=== PATIENT | male | born 1975 | race Caucasian/White ===

== ENCOUNTER 2017-09-13 21:58 | Inpatient (IN) | payer OTHER ==
[2017-09-13 22:51] VITALS: BMI 26.2
--- NOTE | 2017-09-13 23:33 | HP ---
CIWA Score - CIWA Score Nausea/Vomitin Muscle Tremors: 3 Anxiety: 4-Mod. Anxious/Guarded Agitation: 3 Paroxysmal Sweats: 3 Orientation: 2-Disoriented Date<2 days Tacttile Disturbances: 0-None Auditory Disturbances: 0-None Visual Disturbances: 0-None Headache: 3-Moderate CIWA-Ar Total Score: 21 Admission ROS S - HPI Chief Complaint: withdrawal symptoms Allergies/Adverse Reactions: Allergies Allergy/AdvReac Type Severity Reaction Status Date / Time No Known Allergies Allergy Verified 09/13/17 22:54 History of Present Illness: 41 yo male with hx of alcohol, nicotine, and cocaine dependence is here for detox. 16 year cigarette smoking history currently smokes 2 packs per day. PMHX : depression and anxiety. Currently suicidal / homicidal ideation, last suicide attempted 6 months ago with a psychiatric admission to [facility]. Longest period of sobriety 2 years. Last detox 3 years ago, in [place], unable to recall the name of the facility. Exam Limitations: No Limitations - Ebola screening Have you traveled outside of the country in the last 21 days: No (N) Have you had contact with anyone from an Ebola affected area: No Have you been sick,other than usual withdrawal symptoms: No Do you have a fever: No - Review of Systems Constitutional: Chills, Changes in sleep (3 days without sleeping) EENT: reports: No Symptoms Reported Respiratory: reports: Cough (first thing in the morning) Cardiac: reports: No Symptoms Reported, Syncope (from drinking, last time yesterday) GI: reports: Nausea : reports: No Symptoms Reported Musculoskeletal: reports: Joint Pain, Muscle Pain Integumentary: reports: No Symptoms Reported Neuro: reports: Headache Endocrine: reports: No Symptoms Reported Hematology: reports: No Symptoms Reported Psychiatric: reports: Orientated x3, Anxious, Depressed Other Systems: Reviewed and Negative Patient History - Patient Medical History Hx Anemia: No Hx Asthma: No Hx Chronic Obstructive Pulmonary Disease (COPD): No Hx Cancer: Yes (hx of Hodkins Lymphoma, tx 8 years ago) Hx Cardiac Disorders: No Hx Congestive Heart Failure: No Hx Hypertension: No Hx Hypercholesterolemia: No Hx Pacemaker: No HX Cerebrovascular Accident: No Hx Seizures: No Hx Dementia: No Hx Diabetes: No Hx Gastrointestinal Disorders: Yes (GERD ) Hx Liver Disease: No Hx Genitourinary Disorders: No Hx Sexually Transmitted Disorders: No Hx Renal Disease (ESRD): No Hx Thyroid Disease: No Hx Human Immunodeficiency Virus (HIV): No (last tested 2013) Hx Hepatitis C: No Hx Depression: Yes Hx Suicide Attempt: Yes (last attempt 6 months ago and admitted to [facility] ) Hx Bipolar Disorder: No Hx Schizophrenia: No - Patient Surgical History Past Surgical History: Yes Hx Neurologic Surgery: No Hx Cataract Extraction: No Hx Cardiac Surgery: No Hx Lung Surgery: No Hx Breast Surgery: No Hx Breast Biopsy: No Hx Abdominal Surgery: No Hx Appendectomy: No Hx Cholecystectomy: No Hx Genitourinary Surgery: No Hx Section: No Hx Orthopedic Surgery: No Other Surgical History: EAR and neck SX-@ age13 Anesthesia Reaction: No - PPD History Previous Implant?: Yes Documented Results: Negative w/o proof PPD to be Administered?: Yes - Reproductive History Patient is a Female of Child Bearing Age (11 -55 yrs old): No - Smoking Cessation Smoking history: Current every day smoker Have you smoked in the past 12 months: Yes Aproximately how many cigarettes per day: 40 Hx Chewing Tobacco Use: No Initiated information on smoking cessation: Yes 'Breaking Loose' booklet given: 09/13/17 - Substance & Tx. History Hx Alcohol Use: Yes Hx Substance Use: Yes Substance Use Type: Alcohol, Cocaine, Marijuana Hx Substance Use Treatment: Yes - Substances Abused Alcohol Route: Oral Frequency: Daily Amount used: liquor- 3 pints Age of first use: 13 Date of Last Use: 09/13/17 Cocaine Route: Inhalation Frequency: Daily Amount used: 4gm Age of first use: 13 Date of Last Use: 09/13/17 Marijuana/Hashish Route: Smoking Frequency: Daily Amount used: 1 once Age of first use: 14 Date of Last Use: 09/13/17 Family Disease History - Family Disease History Family Disease History: CA: Mother (dec, lung cancer ), Other: Father (alive and well ) Admission Physical Exam [facility] - Vital Signs Vital Signs: Vital Signs - 24 hr 09/13/17 22:49 Temperature 97.1 F L Pulse Rate 104 H Respiratory 19 Rate Blood Pressure 158/99 - Physical General Appearance: Yes: Mild Distress, Irritable, Sweating, Anxious HEENTM: Yes: Hearing grossly Normal, Normal ENT Inspection, Normocephalic, Normal Voice, Pharynx Normal, Tm's normal, Other (dry mucous membranes) Respiratory: Yes: Chest Non-Tender, No Respiratory Distress, No Accessory Muscle Use, Wheezing (expiratory b/t lower lobes) Neck: Yes: No masses,lesions,Nodules, Trachea in good position Breast: Yes: Breast Exam Deferred Cardiology: Yes: Regular Rhythm, Regular Rate Abdominal: Yes: Normal Bowel Sounds, Non Tender, Flat, Soft Genitourinary: Yes: Within Normal Limits (reports no urinary symptoms) Back: Yes: Normal Inspection Musculoskeletal: Yes: full range of Motion, Gait Steady, Pelvis Stable Extremities: Yes: Normal Capillary Refill, Normal Inspection, Normal Range of Motion, Non-Tender Neurological: Yes: white kid buffer II-XII NML intact, Fully Oriented, Alert, Motor Strength 5/5, Normal Response, Depressed Affect Integumentary: Yes: Normal Color, Dry, Warm, Other (poor skin turgor) Lymphatic: Yes: Within Normal Limits - Diagnostic (1) Alcohol dependence with withdrawal Current Visit: Yes Status: Acute (2) Cocaine dependence Current Visit: Yes Status: Acute (3) Anxious mood Current Visit: Yes Status: Acute (4) GERD (gastroesophageal reflux disease) Current Visit: Yes Status: Acute (5) Depressed mood Current Visit: Yes Status: Acute (6) Difficulty sleeping Current Visit: Yes Status: Acute (7) Dehydration Current Visit: Yes Status: Acute (8) Nicotine dependence Current Visit: Yes Status: Chronic Qualifiers: Nicotine product type: cigarettes (9) Wheezing Current Visit: Yes Status: Acute (10) Cannabis dependence Current Visit: Yes Status: Chronic Cleared for Admission [facility] - Detox or Rehab [facility] Level of Care: Medically Managed Detox Regimen/Protocol: Librium [facility] Breath Alcohol Content Breath Alcohol Content: 0.178 Urine Drug Screen - Results Drug Screen Negative: No Urine Drug Screen Results: THC-Marijuana, JUDAH-Cocaine, TCA-Tricyclic Antidepress
[2017-09-13] MEDS ORDERED: chlordiazePOXIDE HCL 25 MG CAPSULE PO PRN (23:51)
[2017-09-13] MEDS ORDERED: MENTHOL/PHENOL 1 EACH UD MM PRN (23:51)
[2017-09-13] MEDS ORDERED: MAGNESIUM HYDROX 2400MG/30ML ORAL SUSPENSION 30 ML CUP PO PRN (23:51)
[2017-09-13] MEDS ORDERED: P-EPHED 60MG/TRIPROLIDI 2.5MG TABLET PO PRN (23:51)
[2017-09-13] MEDS ORDERED: MAGNESIUM CITRATE 300 ML BOTTLE PO PRN (23:51)
[2017-09-13] MEDS ORDERED: guaiFENesin/D-METHORPHAN HB 10 ML UNIT-DOSE CUPS PO PRN (23:51)
[2017-09-13] MEDS ORDERED: chlordiazePOXIDE HCL 25 MG CAPSULE PO ONE (23:51)
[2017-09-13] MEDS ORDERED: hydrOXYzine PAMOATE 50 MG CAPSULE (FP) PO PRN (23:51)
[2017-09-13] MEDS ORDERED: LOPERAMIDE HCL 2 MG CAPSULE PO PRN (23:51)
[2017-09-13] MEDS ORDERED: ACETAMINOPHEN 325 MG TABLET (FP) PO PRN (23:51)
[2017-09-13] MEDS ORDERED: IBUPROFEN 400 MG TABLET (FP) PO PRN (23:51)
[2017-09-13] MEDS ORDERED: MAG HYDROX/AL HYDROX/SIMETH 30 ML UNIT-DOSE CUP PO PRN (23:51)
[2017-09-13] MEDS ORDERED: NICOTINE POLACRILEX 4 MG GUM BC PRN (23:51)
[2017-09-13] MEDS ORDERED: ALBUTEROL SO4 2.5/IPRATROPIUM 0.5 INH SOL 3 ML VIAL.NEB. NEB PRN (23:53)
[2017-09-14] MEDS: chlordiazePOXIDE HCL 25 MG CAPSULE PO SCH ×5 (01:09→22:22)
--- NOTE | 2017-09-14 09:09 | CONSULT ---
[facility] Psychiatric Consult - Data Date of interview: 09/14/17 Admission source: [facility] Identifying data: This is 41 years old male with history of psychiatric hospitalization, currently looking for detos from: Cocaine, Opioids and Nicotine Substance Abuse History: - Smoking Cessation. Smoking history: Current every day smoker. Have you smoked in the past 12 months: Yes. Aproximately how many cigarettes per day: 40. Hx Chewing Tobacco Use: No. Initiated information on smoking cessation: Yes. 'Breaking Loose' booklet given: 09/13/17. - Substance & Tx. History. Hx Alcohol Use: Yes. Hx Substance Use: Yes. Substance Use Type : Alcohol, Cocaine, Marijuana. Hx Substance Use Treatment: Yes. - Substances Abused. Alcohol. Route: Oral. Frequency: Daily. Amount used: liquor- 3 pints. Age of first use: 13. Date of Last Use: 09/13/17. Cocaine. Route: Inhalation. Frequency: Daily. Amount used: 4gm. Age of first use: 13. Date of Last Use: 09/13/17. Marijuana/Hashish. Route: Smoking. Frequency: Daily. Amount used: 1 once. Age of first use: 14. Date of Last Use: 09/13/17 Medical History: Denies significant medical problem. As per computer -GERD Psychiatric History: Patient reports hisotyr of anxety, reports most recent psychiatric admission on 2015 at [facility]; for safety being under Cicaine influance. Reports no medications taking prior to admission Physical/Sexual Abuse/Trauma History: Denies Additional Comment: Observation. Detox Unit Care Protocol Mental Status Exam - Mental Status Exam Alert and Oriented to: Person Cognitive Function: Fair Patient Appearance: Unkempt Mood: Anxious Affect: Mood Congruent Patient Behavior: Cooperative Speech Pattern: Appropriate Voice Loudness: Normal Thought Process: Goal Oriented Thought Disorder: Being Controlled Hallucinations: Denies Suicidal Ideation: Denies Homicidal Ideation: Denies Insight/Judgement: Fair Sleep: Difficulty falling asleep Appetite: Weight loss Muscle strength/Tone: Normal Gait/Station: Normal Additional Comments: Observation. Detox Unit Care Protocol Psychiatric Findings - Problem List ([place] 1, 2,3) (1) Drug-induced mood disorder Current Visit: Yes Status: Acute (2) Alcohol dependence with withdrawal Current Visit: Yes Status: Acute (3) Anxious mood Current Visit: Yes Status: Acute (4) Depressed mood Current Visit: Yes Status: Acute (5) GERD (gastroesophageal reflux disease) Current Visit: Yes Status: Acute (6) Cannabis dependence Current Visit: Yes Status: Chronic (7) Cocaine dependence Current Visit: Yes Status: Chronic (8) Nicotine dependence Current Visit: Yes Status: Chronic Qualifiers: Nicotine product type: cigarettes - Initial Treatment Plan Initial Treatment Plan: Observation. Detox Unit Care Protocol
[2017-09-14] MEDS: PRENATAL VITAMINS W/ FOLIC ACID TABLET (FP) PO SCH (10:05)
[2017-09-14] MEDS: NICOTINE 21 MG/24 HOURS TOPICAL PATCH TD SCH (10:05)
[2017-09-14 10:24] LABS: HEMATOCRIT 44.3 % (35.4-49); HEMOGLOBIN 14.6 GM/dL (11.7-16.9); MCH 30.7 pg (25.7-33.7); MCHC 32.8 g/dl (32.0-35.9); MEAN CELL VOLUME 93.6 fl (80-96); MEAN PLT VOLUME 7.7 fl (7.5-11.1); PLATELET COUNT 316 K/MM3 (134-434); RBC 4.74 M/mm3 (4.00-5.60); RDW 13.2 % (11.9-15.9); WHITE BLOOD COUNT 9.5 K/mm3 (4.0-10.0)
--- NOTE | 2017-09-14 10:25 | PN ---
[facility] CIWA - CIWA Score Nausea/Vomitin-No Nausea/No Vomiting Muscle Tremors: 4-Moderate,w/Arms Extend Anxiety: 4-Mod. Anxious/Guarded Agitation: 4-Moderately Restless Paroxysmal Sweats: 1-Minimal Palms Moist Orientation: 0-Oriented Tacttile Disturbances: 3-Moderate Itch/Numb/Burn Auditory Disturbances: 0-None Visual Disturbances: 0-None Headache: 0-None Present CIWA-Ar Total Score: 16 [facility] Progress Note (SOAP) Subjective: "I DON'T FEEL GOOD AT ALL". C/O TREMORS,IRRITABILITY,SWEATS,FATIGUE. Objective: 09/14/17 10:24 Vital Signs 09/14/17 09/14/17 09/14/17 04:03 06:14 09:03 Temperature 98.1 F Pulse Rate 96 H 75 113 H Respiratory 20 18 Rate Blood Pressure 104/65 132/75 LABS PENDING Assessment: 09/14/17 10:24 WITHDRAWAL SX Plan: CONTINUE DETOX LIBRIUM 50 MG PO AT 2:30 PM TODAY. INCREASE PO FLUIDS.
[2017-09-14 10:36] LABS: CHLORIDE 101 mmol/L (98-107); POTASSIUM 4.2 mmol/L (3.5-5.1); SODIUM 139 mmol/L (136-145)
[2017-09-14 10:43] LABS: ALBUMIN 3.8 g/dl (3.4-5.0); ALK PHOS 100 U/L (45-117); ANION GAP 11 (8-16); BILIRUBIN,TOTAL 0.6 mg/dL (0.2-1.0); BLOOD UREA NITROGEN 13 mg/dL (7-18); CALCIUM 8.7 mg/dL (8.5-10.1); CO2 27 mmol/L (21-32); CREATININE 0.9 mg/dL (0.7-1.3); GLUCOSE,RANDOM 69 mg/dL (74-106); SGOT/AST 29 U/L (15-37); SGPT/ALT 36 U/L (12-78); TOT PROT 7.3 g/dl (6.4-8.2)
--- NOTE | 2017-09-14 10:54 | EKG ---
Test Reason : Blood Pressure : / mmHG Vent. Rate : 097 BPM Atrial Rate : 097 BPM P-R Int : 174 ms QRS Dur : 086 ms QT Int : 356 ms P-R-T Axes : 071 048 065 degrees QTc Int : 452 ms NORMAL SINUS RHYTHM NORMAL ECG NO PREVIOUS ECGS AVAILABLE Confirmed by AURORA CASAS, RUDY ([id number]) on 09/14/2017 10:54:04 AM Referred By: Confirmed By:RUDY SIMON MD
[2017-09-14] MEDS: THIAMINE HCL 100 MG TABLET (FP) PO SCH (22:22)
[2017-09-15] MEDS: chlordiazePOXIDE HCL 25 MG CAPSULE PO SCH ×3 (05:21→17:36)
[2017-09-15] MEDS: NICOTINE 21 MG/24 HOURS TOPICAL PATCH TD SCH ×2 (10:11→15:28)
[2017-09-15] MEDS: PRENATAL VITAMINS W/ FOLIC ACID TABLET (FP) PO SCH (10:11)
[2017-09-15] MEDS ORDERED: ONDANSETRON *ODT* 4 MG TABLET SL PRN (10:22)
--- NOTE | 2017-09-15 10:26 | PN ---
S CIWA - CIWA Score Nausea/Vomitin-Int. Nausea w/Dry Heave Muscle Tremors: 4-Moderate,w/Arms Extend Anxiety: 4-Mod. Anxious/Guarded Agitation: 4-Moderately Restless Paroxysmal Sweats: 1-Minimal Palms Moist Orientation: 0-Oriented Tacttile Disturbances: 3-Moderate Itch/Numb/Burn Auditory Disturbances: 0-None Visual Disturbances: 0-None Headache: 0-None Present CIWA-Ar Total Score: 20 [facility] Progress Note (SOAP) Subjective: ANXIETY,SWEATS, TREMORS, NAUSEA,DIZZINESS. Objective: 09/15/17 10:25 Vital Signs Temperature 96.5 F L 09/15/17 06:04 Pulse Rate 60 09/15/17 06:04 Respiratory Rate 18 09/15/17 06:04 Blood Pressure 110/68 09/15/17 06:04 O2 Sat by Pulse Oximetry (%) Laboratory Last Values WBC 9.5 K/mm3 (4.0-10.0) 09/14/17 07:30 RBC 4.74 M/mm3 (4.00-5.60) 09/14/17 07:30 Hgb 14.6 GM/dL (11.7-16.9) 09/14/17 07:30 Hct 44.3 % (35.4-49) 09/14/17 07:30 MCV 93.6 fl (80-96) 09/14/17 07:30 MCH 30.7 pg (25.7-33.7) 09/14/17 07:30 MCHC 32.8 g/dl (32.0-35.9) 09/14/17 07:30 RDW 13.2 % (11.9-15.9) 09/14/17 07:30 Plt Count 316 K/MM3 (134-434) 09/14/17 07:30 MPV 7.7 fl (7.5-11.1) 09/14/17 07:30 Sodium 139 mmol/L (136-145) 09/14/17 07:30 Potassium 4.2 mmol/L (3.5-5.1) 09/14/17 07:30 Chloride 101 mmol/L (98-107) 09/14/17 07:30 Carbon Dioxide 27 mmol/L (21-32) 09/14/17 07:30 Anion Gap 11 (8-16) 09/14/17 07:30 BUN 13 mg/dL (7-18) 09/14/17 07:30 Creatinine 0.9 mg/dL (0.7-1.3) 09/14/17 07:30 Creat Clearance w eGFR > 60 (>60) 09/14/17 07:30 Random Glucose 69 mg/dL (74-106) L 09/14/17 07:30 Calcium 8.7 mg/dL (8.5-10.1) 09/14/17 07:30 Total Bilirubin 0.6 mg/dL (0.2-1.0) 09/14/17 07:30 AST 29 U/L (15-37) 09/14/17 07:30 ALT 36 U/L (12-78) 09/14/17 07:30 Alkaline Phosphatase 100 U/L (45-117) 09/14/17 07:30 Total Protein 7.3 g/dl (6.4-8.2) 09/14/17 07:30 Albumin 3.8 g/dl (3.4-5.0) 09/14/17 07:30 RPR Titer Nonreactive (NONREACTIVE) 09/14/17 07:30 Hepatitis C Antibody 0.1 s/co ratio (0.0-0.9) 09/13/17 07:30 HIV 1&2 Antibody Screen Negative 09/14/17 07:30 HIV P24 Antigen Negative 09/14/17 07:30 Assessment: 09/15/17 10:25 WITHDRAWAL SX Plan: CONTINUE DETOX ZOFRAN DIRECTED FOR NAUSEA HYDRATION TOLERATED
[2017-09-15 10:49] LABS: URINE APPEARANCE SLCLOUDY; URINE BILIRUBIN NEGATIVE (NEGATIVE); URINE BLOOD NEGATIVE (NEGATIVE); URINE COLOR YELLOW; URINE GLUCOSE (UA) NEGATIVE (NEGATIVE); URINE KETONE NEGATIVE (NEGATIVE); URINE LEUK ESTERASE NEGATIVE (NEGATIVE); URINE NITRITE NEGATIVE (NEGATIVE); URINE PROTEIN NEGATIVE (NEGATIVE)
[2017-09-15] MEDS: chlordiazePOXIDE 5 MG CAPSULE PO SCH (22:21)
[2017-09-15] MEDS: THIAMINE HCL 100 MG TABLET (FP) PO SCH (22:21)
[2017-09-16] MEDS: chlordiazePOXIDE 5 MG CAPSULE PO SCH (05:36)
[2017-09-16 09:50] VITALS: BP 128/76; PULSE 69; TEMP 97.6
[2017-09-16] MEDS: NICOTINE 21 MG/24 HOURS TOPICAL PATCH TD SCH (10:17)
[2017-09-16] MEDS: PRENATAL VITAMINS W/ FOLIC ACID TABLET (FP) PO SCH (10:17)
[2017-09-16] MEDS ORDERED: chlordiazePOXIDE HCL 10 MG CAPSULE PO SCH ×2 (11:00→23:00)
--- NOTE | 2017-09-16 11:51 | DS ---
[facility] Detox Discharge Summary Admission Date: 09/13/17 Discharge Date: 09/16/17 - History Present History: Alcohol Dependence, Cannabis Dependence Additional Comments: DETOX COMPLETED. ALERT O X 3. NAD. Pertinent Past History: SEE DX BELOW - Physical Exam Results Vital Signs: Vital Signs Temperature 97.6 F 09/16/17 09:49 Pulse Rate 69 09/16/17 09:49 Respiratory Rate 18 09/16/17 09:49 Blood Pressure 128/76 09/16/17 09:49 O2 Sat by Pulse Oximetry (%) Pertinent Admission Physical Exam Findings: WITHDRAWAL SX Laboratory Last Values WBC 9.5 K/mm3 (4.0-10.0) 09/14/17 07:30 RBC 4.74 M/mm3 (4.00-5.60) 09/14/17 07:30 Hgb 14.6 GM/dL (11.7-16.9) 09/14/17 07:30 Hct 44.3 % (35.4-49) 09/14/17 07:30 MCV 93.6 fl (80-96) 09/14/17 07:30 MCH 30.7 pg (25.7-33.7) 09/14/17 07:30 MCHC 32.8 g/dl (32.0-35.9) 09/14/17 07:30 RDW 13.2 % (11.9-15.9) 09/14/17 07:30 Plt Count 316 K/MM3 (134-434) 09/14/17 07:30 MPV 7.7 fl (7.5-11.1) 09/14/17 07:30 Sodium 139 mmol/L (136-145) 09/14/17 07:30 Potassium 4.2 mmol/L (3.5-5.1) 09/14/17 07:30 Chloride 101 mmol/L (98-107) 09/14/17 07:30 Carbon Dioxide 27 mmol/L (21-32) 09/14/17 07:30 Anion Gap 11 (8-16) 09/14/17 07:30 BUN 13 mg/dL (7-18) 09/14/17 07:30 Creatinine 0.9 mg/dL (0.7-1.3) 09/14/17 07:30 Creat Clearance w eGFR > 60 (>60) 09/14/17 07:30 Random Glucose 69 mg/dL (74-106) L 09/14/17 07:30 Calcium 8.7 mg/dL (8.5-10.1) 09/14/17 07:30 Total Bilirubin 0.6 mg/dL (0.2-1.0) 09/14/17 07:30 AST 29 U/L (15-37) 09/14/17 07:30 ALT 36 U/L (12-78) 09/14/17 07:30 Alkaline Phosphatase 100 U/L (45-117) 09/14/17 07:30 Total Protein 7.3 g/dl (6.4-8.2) 09/14/17 07:30 Albumin 3.8 g/dl (3.4-5.0) 09/14/17 07:30 Urine Color Yellow 09/15/17 07:30 Urine Appearance Slcloudy 09/15/17 07:30 Urine pH 5.0 (5.0-8.0) 09/15/17 07:30 Ur Specific Lottie 1.026 (1.001-1.035) 09/15/17 07:30 Urine Protein Negative (NEGATIVE) 09/15/17 07:30 Urine Glucose (UA) Negative (NEGATIVE) 09/15/17 07:30 Urine Ketones Negative (NEGATIVE) 09/15/17 07:30 Urine Blood Negative (NEGATIVE) 09/15/17 07:30 Urine Nitrite Negative (NEGATIVE) 09/15/17 07:30 Urine Bilirubin Negative (NEGATIVE) 09/15/17 07:30 Urine Urobilinogen 2.0 mg/dL (0.2-1.0) 09/15/17 07:30 Ur Leukocyte Esterase Negative (NEGATIVE) 09/15/17 07:30 RPR Titer Nonreactive (NONREACTIVE) 09/14/17 07:30 Hepatitis C Antibody 0.1 s/co ratio (0.0-0.9) 09/13/17 07:30 HIV 1&2 Antibody Screen Negative 09/14/17 07:30 HIV P24 Antigen Negative 09/14/17 07:30 - Treatment Hospital Course: Detox Protocol Followed, Detoxed Safely, Responded well, Discharged Condition Good - Medication Discharge Medications: Ambulatory Orders NK [No Known Home Medication] 09/13/17 - Diagnosis (1) Alcohol dependence with withdrawal Status: Acute Qualifiers: Complication of substance-induced condition: uncomplicated Qualified Code(s ): F10.230 - Alcohol dependence with withdrawal, uncomplicated (2) GERD (gastroesophageal reflux disease) Status: Acute Qualifiers: Esophagitis presence: esophagitis presence not specified Qualified Code(s) : K21.9 - Gastro-esophageal reflux disease without esophagitis (3) Cocaine dependence Status: Chronic Qualifiers: Substance use status: uncomplicated Qualified Code(s): F14.20 - Cocaine dependence, uncomplicated (4) Nicotine dependence Status: Acute Qualifiers: Nicotine product type: cigarettes Substance use status: in withdrawal Qualified Code(s): F17.213 - Nicotine dependence, cigarettes, with withdrawal (5) Cannabis dependence Status: Acute - AMA Did Patient Leave Against Medical Advice: No
== END 2017-09-16 10:17 | disposition home or self-care (01) | DRG 774 ==
LOC: YASAS 21:58 → Y3N 22:59
PROVIDERS: ADMIT Internal Medicine; ATTEND Internal Medicine
PROC: HZ2ZZZZ Detoxification Services for Substance Abuse Treatment (ICD-10-PCS; principal; 2017-09-13)
DX: F10.230 Alcohol dependence with withdrawal, uncomplicated (principal); F14.20 Cocaine dependence, uncomplicated; F12.20 Cannabis dependence, uncomplicated; F17.213 Nicotine dependence, cigarettes, with withdrawal; F41.8 Other specified anxiety disorders; F32.9 Major depressive disorder, single episode, unspecified; F19.24 Other psychoactive substance dependence with psychoactive substance-induced mood disorder; K21.9 Gastro-esophageal reflux disease without esophagitis; G47.00 Insomnia, unspecified; E86.0 Dehydration; R06.2 Wheezing; Z85.71 Personal history of Hodgkin lymphoma; Z91.5 Personal history of self-harm
CPT/HCPCS: 36415; 80053; 81003; 85027; 86593; 86803; 87389; 93005; 93010

== ENCOUNTER 2019-01-24 10:06 | Inpatient (IN) | payer OTHER ==
[2019-01-24 14:02] VITALS: BMI 28.0
--- NOTE | 2019-01-24 15:08 | HP ---
CIWA Score Nausea/Vomitin-Mild Nausea/No Vomiting Muscle Tremors: 4-Moderate,w/Arms Extend Anxiety: 4-Mod. Anxious/Guarded Agitation: 4-Moderately Restless Paroxysmal Sweats: 3 Orientation: 0-Oriented Tacttile Disturbances: 1-Very Mild Itch/Numbness Auditory Disturbances: 0-None Visual Disturbances: 0-None Headache: 0-None Present CIWA-Ar Total Score: 17 - Admission Criteria [facility] Guidelines: Admission for Medically Managed Detox: Requires at least one of the followin. CIWA greater than 12 2. Seizures within the past 24 hours 3. Delirium tremens within the past 24 hours 4. Hallucinations within the past 24 hours 5. Acute intervention needed for co occurring medical disorder 6. Acute intervention needed for co occurring psychiatric disorder 7. Severe withdrawal that cannot be handled at a lower level of care (continued vomiting, continued diarrhea, abnormal vital signs) requiring intravenous medication and/or fluids 8. Admission ROS [facility] - HPI Chief Complaint: I want to get sober and clean. Allergies/Adverse Reactions: Allergies Allergy/AdvReac Type Severity Reaction Status Date / Time Tide laundry detergent Allergy Severe Uncoded 01/24/19 13:44 CT Scan contrast Allergy Swelling Uncoded 01/24/19 13:45 History of Present Illness: pt is a 43yrold male with a history of alcohol, cocaine, marijuana, and ectesy dependence seeking detox for treatment. Exam Limitations: No Limitations - Ebola screening Have you traveled outside of the country in the last 21 days: No (N) Have you had contact with anyone from an Ebola affected area: No Have you been sick,other than usual withdrawal symptoms: No Do you have a fever: No - Review of Systems Constitutional: Chills, Night Sweats, Changes in sleep, Unintentional Wgt. Loss EENT: reports: Tearing, Nose Congestion Respiratory: reports: No Symptoms reported Cardiac: reports: Lightheadedness GI: reports: Constipated, Diarrhea, Nausea, Poor Appetite, Poor Fluid Intake, Indigestion, Abdominal cramping : reports: No Symptoms Reported Musculoskeletal: reports: Back Pain, Joint Pain Integumentary: reports: Flushing, Sweating Neuro: reports: Headache, Tingling, Tremors Endocrine: reports: Excessive Sweating, Flushing, Intolerance to Cold, Intolerance to Heat Hematology: reports: No Symptoms Reported Psychiatric: reports: Judgement Intact, Mood/Affect Appropiate, Orientated x3, Agitated, Anxious Other Systems: Reviewed and Negative Patient History - Patient Medical History Hx Anemia: No Hx Asthma: No Hx Chronic Obstructive Pulmonary Disease (COPD): No Hx Cancer: Yes (hx of Hodkins Lymphoma, tx 8 years ago/ remission) Hx Cardiac Disorders: No Hx Congestive Heart Failure: No Hx Hypertension: No Hx Hypercholesterolemia: No Hx Pacemaker: No HX Cerebrovascular Accident: No Hx Seizures: No Hx Dementia: No Hx Diabetes: No Hx Gastrointestinal Disorders: Yes (GERD ) Hx Liver Disease: No Hx Genitourinary Disorders: No Hx Sexually Transmitted Disorders: No Hx Renal Disease (ESRD): No Hx Thyroid Disease: No Hx Human Immunodeficiency Virus (HIV): No (negative) Hx Hepatitis C: No (negative) Hx Depression: Yes Hx Suicide Attempt: No Hx Bipolar Disorder: No Hx Schizophrenia: No Other Medical History: anxiety - Patient Surgical History Past Surgical History: Yes Hx Neurologic Surgery: No Hx Cataract Extraction: No Hx Cardiac Surgery: No Hx Lung Surgery: No Hx Breast Surgery: No Hx Breast Biopsy: No Hx Abdominal Surgery: No Hx Appendectomy: No Hx Cholecystectomy: No Hx Genitourinary Surgery: No Hx Section: No Hx Orthopedic Surgery: No Other Surgical History: EAR and neck SX-@ age13 Anesthesia Reaction: No - PPD History Previous Implant?: Yes Documented Results: Negative w/o proof PPD to be Administered?: Yes - Reproductive History Patient is a Female of Child Bearing Age (11 -55 yrs old): No - Smoking Cessation Smoking history: Current every day smoker Have you smoked in the past 12 months: Yes Aproximately how many cigarettes per day: 40 Hx Chewing Tobacco Use: No Initiated information on smoking cessation: Yes 'Breaking Loose' booklet given: 01/24/19 - Substance & Tx. History Hx Alcohol Use: Yes Hx Substance Use: Yes Substance Use Type: Alcohol, Cocaine, Marijuana Hx Substance Use Treatment: Yes ([facility]) - Substances abused Cocaine Substance route: Inhalation Frequency: Daily Amount used: 2 grams/day Age of first use: 17 Date of last use: 01/24/19 Ectasy Substance route: Oral Frequency: Daily Amount used: 1-2 pills/day Age of first use: 24 Date of last use: 01/23/19 Alcohol Substance route: Oral Frequency: Daily Amount used: 2-4 pints vodka Age of first use: 14 Date of last use: 01/24/19 Marijuana/Hashish Substance route: Inhalation Frequency: Daily Amount used: 100usd Age of first use: 13 Date of last use: 01/24/19 Family Disease History - Family Disease History Family Disease History: CA: Mother (dec, lung cancer ), Other: Father (alive and well ) Admission Physical Exam [facility] - Vital Signs Vital Signs: Vital Signs - 24 hr 01/24/19 13:48 Temperature 98.4 F Pulse Rate 89 Respiratory 20 Rate Blood Pressure 128/87 - Physical General Appearance: Yes: Appropriately Dressed, Moderate Distress, Tremorous, Irritable, Sweating, Anxious HEENTM: Yes: Hearing grossly Normal, Normocephalic, Normal Voice, Rhinorrhea Respiratory: Yes: Lungs Clear, Normal Breath Sounds, No Respiratory Distress Neck: Yes: No masses,lesions,Nodules, Trachea in good position Breast: Yes: Within Normal Limits, No masses Cardiology: Yes: Regular Rhythm, Regular Rate, S1, S2 Abdominal: Yes: Normal Bowel Sounds, Non Tender Genitourinary: Yes: Within Normal Limits Back: Yes: Normal Inspection Musculoskeletal: Yes: full range of Motion, Back pain Extremities: Yes: Normal Capillary Refill, Normal Inspection, Non-Tender, Tremors Neurological: Yes: Fully Oriented, Alert, Normal Response Integumentary: Yes: Normal Color, Diaphoresis Lymphatic: Yes: Within Normal Limits - Diagnostic (1) Alcohol dependence with withdrawal Current Visit: Yes Status: Chronic Qualifiers: Complication of substance-induced condition: uncomplicated Qualified Code(s ): F10.230 - Alcohol dependence with withdrawal, uncomplicated (2) Cannabis dependence Current Visit: Yes Status: Chronic (3) GERD (gastroesophageal reflux disease) Current Visit: Yes Status: Chronic Qualifiers: Esophagitis presence: without esophagitis Qualified Code(s): K21.9 - Gastro -esophageal reflux disease without esophagitis (4) Nicotine dependence Current Visit: Yes Status: Chronic Qualifiers: Nicotine product type: cigarettes Substance use status: uncomplicated Qualified Code(s): F17.210 - Nicotine dependence, cigarettes, uncomplicated (5) Cocaine dependence Current Visit: Yes Status: Chronic Qualifiers: Substance use status: uncomplicated Qualified Code(s): F14.20 - Cocaine dependence, uncomplicated Cleared for Admission [facility] - Detox or Rehab [facility] Level of Care: Medically Managed Detox Regimen/Protocol: Librium Breathalyzer - Breathalyzer Breathalyzer: 0 Urine Drug Screen - Test Device Lot number: [id number] Expiration date: 10/05/20 - Control Is test valid?: Yes - Results Drug screen NEGATIVE: No Urine drug screen results: THC-Marijuana, JUDAH-Cocaine Inpatient Rehab Admission - Rehab Decision to Admit Inpatient rehab admission?: No
[2019-01-24] MEDS ORDERED: ACETAMINOPHEN 325 MG TABLET (FP) PO PRN ×2 (15:19)
[2019-01-24] MEDS ORDERED: IBUPROFEN 400 MG TABLET (FP) PO PRN (15:19)
[2019-01-24] MEDS ORDERED: MAG HYDROX/AL HYDROX/SIMETH 30 ML UNIT-DOSE CUP PO PRN (15:19)
[2019-01-24] MEDS ORDERED: MAGNESIUM CITRATE 300 ML BOTTLE PO PRN (15:19)
[2019-01-24] MEDS ORDERED: MENTHOL/PHENOL 1 EACH UD MM PRN (15:19)
[2019-01-24] MEDS ORDERED: MELATONIN 5 MG TABLETS PO PRN (15:19)
[2019-01-24] MEDS ORDERED: METHOCARBAMOL 500 MG TABLET PO PRN (15:19)
[2019-01-24] MEDS ORDERED: MAGNESIUM HYDROX 2400MG/30ML ORAL SUSPENSION 30 ML CUP PO PRN (15:19)
[2019-01-24] MEDS ORDERED: NICOTINE POLACRILEX 4 MG GUM BUC PRN (15:19)
[2019-01-24] MEDS ORDERED: DICYCLOMINE HCL 10 MG CAPSULE PO PRN (15:19)
[2019-01-24] MEDS ORDERED: chlordiazePOXIDE HCL 25 MG CAPSULE PO ONE (15:40)
[2019-01-24] MEDS: ONDANSETRON *ODT* 4 MG TABLET SL PRN (16:40)
--- NOTE | 2019-01-24 17:19 | CONSULT ---
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 This is patient's first admission to detox at [facility]. Patient admitted to for alcohol, cocaine, and marijuana dependence. Substance Abuse History: Smoking Cessation. Smoking history: Current every day smoker. Have you smoked in the past 12 months: Yes. Aproximately how many cigarettes per day: 40. Hx Chewing Tobacco Use: No. Initiated information on smoking cessation: Yes. 'Breaking Loose' booklet given: 01/24/19. - Substance & Tx. History. Hx Alcohol Use: Yes. Hx Substance Use: Yes. Substance Use Type : Alcohol, Cocaine, Marijuana. Hx Substance Use Treatment: Yes (last detox [facility] 2018). - Substances abused. Cocaine. Substance route: Inhalation. Frequency: Daily. Amount used: 2 grams/day. Age of first use: 17. Date of last use: 01/24/19. Ectasy. Substance route: Oral. Frequency : Daily. Amount used: 1-2 pills/day. Age of first use: 24. Date of last use: 01/23/19. Alcohol. Substance route: Oral. Frequency: Daily. Amount used: 2-4 pints vodka. Age of first use: 14. Date of last use: 01/24/19. Marijuana/Hashish. Substance route: Inhalation. Frequency: Daily. Amount used : 100usd. Age of first use: 13. Date of last use: 01/24/19 Medical History: GERD, hx of Hodkins Lymphoma, tx 8 years ago/ remission, EAR and neck SX-@ age13 Psychiatric History: Patient reports h/o one psychiatric hospitalization approximately 5 years ago after he was drunk and begun to act erratically. He was admitted to a psychiatric unit and was discharge after two days. Patient denies h/o outpatient care and suicide attempt. Physical/Sexual Abuse/Trauma History: denies. Mental Status Exam - Mental Status Exam Alert and Oriented to: Time, Place, Person Cognitive Function: Good Patient Appearance: Well Groomed Mood: Euthymic Affect: Appropriate Patient Behavior: Cooperative Speech Pattern: Appropriate Voice Loudness: Normal Thought Process: Goal Oriented Thought Disorder: Not Present Hallucinations: Denies Suicidal Ideation: Denies Homicidal Ideation: Denies Insight/Judgement: Poor Sleep: Poorly Appetite: Fair Muscle strength/Tone: Normal Gait/Station: Normal Psychiatric Findings - Problem List ([place] 1, 2,3) (1) Substance-induced sleep disorder Current Visit: Yes Status: Acute (2) Alcohol dependence with withdrawal Current Visit: Yes Status: Acute Qualifiers: Complication of substance-induced condition: uncomplicated Qualified Code(s ): F10.230 - Alcohol dependence with withdrawal, uncomplicated (3) Cannabis dependence Current Visit: Yes Status: Chronic (4) Cocaine dependence Current Visit: Yes Status: Chronic Qualifiers: Substance use status: uncomplicated Qualified Code(s): F14.20 - Cocaine dependence, uncomplicated (5) Nicotine dependence Current Visit: Yes Status: Chronic Qualifiers: Nicotine product type: cigarettes Substance use status: uncomplicated Qualified Code(s): F17.210 - Nicotine dependence, cigarettes, uncomplicated - Initial Treatment Plan Initial Treatment Plan: Psychoeducation provided. Detoxification in progress. Will order Belsomra 10mg HS prn. Benefits and side effects discussed. Verbal consent given.
[2019-01-24 18:37] LABS: ALBUMIN 4.4 g/dl (3.4-5.0); BILIRUBIN,TOTAL 0.7 mg/dL (0.2-1); BLOOD UREA NITROGEN 14.9 mg/dL (7-18); CALCIUM 9.8 mg/dL (8.5-10.1); CREATININE 1.1 mg/dL (0.55-1.3); POTASSIUM 3.8 mmol/L (3.5-5.1); TOT PROT 8.2 g/dl (6.4-8.2)
[2019-01-24 18:40] LABS: HEMOGLOBIN 15.7 GM/dL (11.7-16.9); MCH 32.1 pg (25.7-33.7); MCHC 34.3 g/dl (32.0-35.9); MEAN CELL VOLUME 93.8 fl (80-96); MEAN PLT VOLUME 8.3 fl (7.5-11.1); PLATELET COUNT 290 K/MM3 (134-434); RDW 13.5 % (11.9-15.9); WHITE BLOOD COUNT 8.4 K/mm3 (4.0-10.0)
[2019-01-24] MEDS: chlordiazePOXIDE HCL 25 MG CAPSULE PO PRN (19:29)
[2019-01-24] MEDS: hydrOXYzine PAMOATE 25 MG CAPSULE (FP) PO PRN (19:29)
[2019-01-24] MEDS: THIAMINE HCL 100 MG TABLET (FP) PO SCH (22:16)
[2019-01-24] MEDS: chlordiazePOXIDE HCL 25 MG CAPSULE PO SCH (22:16)
[2019-01-24] MEDS: SUVOREXANT 10 MG TABLET PO PRN (22:17)
[2019-01-25] MEDS: chlordiazePOXIDE HCL 25 MG CAPSULE PO SCH ×4 (06:02→22:14)
[2019-01-25] MEDS ORDERED: NICOTINE 21 MG/24 HOURS TOPICAL PATCH TD SCH (10:00)
[2019-01-25] MEDS ORDERED: PRENATAL VITAMINS W/ FOLIC ACID TABLET (FP) PO SCH (10:00)
[2019-01-25] MEDS: hydrOXYzine PAMOATE 25 MG CAPSULE (FP) PO PRN (10:34)
--- NOTE | 2019-01-25 10:49 | PN ---
[facility] CIWA - CIWA Score Nausea/Vomitin-No Nausea/No Vomiting Muscle Tremors: 3 Anxiety: 3 Agitation: 3 Paroxysmal Sweats: 2 Orientation: 0-Oriented Tacttile Disturbances: 0-None Auditory Disturbances: 0-None Visual Disturbances: 0-None Headache: 0-None Present CIWA-Ar Total Score: 11 S Progress Note (SOAP) Subjective: anxiety sweats restless Objective: 01/25/19 10:49 Vital Signs Temperature 96.1 F L 01/25/19 09:22 Pulse Rate 78 01/25/19 09:22 Respiratory Rate 18 01/25/19 09:22 Blood Pressure 125/75 01/25/19 09:22 O2 Sat by Pulse Oximetry (%) Laboratory Tests 01/24/19 01/24/19 01/24/19 15:10 15:10 15:10 WBC 8.4 RBC 4.90 Hgb 15.7 Hct 46.0 MCV 93.8 MCH 32.1 MCHC 34.3 RDW 13.5 Plt Count 290 MPV 8.3 Sodium 136 Potassium 3.8 Chloride 100 Carbon Dioxide 26 Anion Gap 11 BUN 14.9 Creatinine 1.1 Est GFR (CKD-EPI)AfAm 94.13 Est GFR (CKD-EPI)NonAf 81.21 Random Glucose 86 Calcium 9.8 Total Bilirubin 0.7 AST 54 H ALT 83 H Alkaline Phosphatase 99 Total Protein 8.2 Albumin 4.4 RPR Titer Nonreactive labs noted aaox3 ambulating no acute distress Assessment: 01/25/19 10:49 withdrawal sx Plan: continue detox increase fluids
--- NOTE | 2019-01-25 12:33 | EKG ---
Test Reason : Blood Pressure : / mmHG Vent. Rate : 086 BPM Atrial Rate : 086 BPM P-R Int : 164 ms QRS Dur : 084 ms QT Int : 358 ms P-R-T Axes : 059 040 063 degrees QTc Int : 428 ms NORMAL SINUS RHYTHM NORMAL ECG WHEN COMPARED WITH ECG OF 14-SEP-2017 00:19, NO SIGNIFICANT CHANGE WAS FOUND Confirmed by ZENY TSAI MD ([id number]) on 01/25/2019 12:33:25 PM Referred By: Confirmed By:ZENY TSAI MD
[2019-01-25] MEDS: ONDANSETRON *ODT* 4 MG TABLET SL PRN (20:06)
[2019-01-25] MEDS: chlordiazePOXIDE HCL 25 MG CAPSULE PO PRN (20:07)
[2019-01-25] MEDS: SUVOREXANT 10 MG TABLET PO PRN (22:14)
[2019-01-25] MEDS: THIAMINE HCL 100 MG TABLET (FP) PO SCH (22:14)
[2019-01-26] MEDS: chlordiazePOXIDE HCL 25 MG CAPSULE PO SCH (05:10)
[2019-01-26 06:41] VITALS: BP 100/61; PULSE 64; TEMP 96.8
--- NOTE | 2019-01-26 07:47 | PN ---
[facility] Progress Note Note: called by nurse stated patient did not want to complete treatment due to personal reason,signed release ama, risk of relapsing is high,explained to patient,patient understood,advise to go to nearest emergency room if any problem
--- NOTE | 2019-01-26 07:51 | DS ---
[facility] Detox Discharge Summary Admission Date: 01/24/19 Discharge Date: 01/26/19 - History Present History: Alcohol Dependence, Cannabis Dependence, Cocaine Dependence Additional Comments: patient signed release AMA - Physical Exam Results Vital Signs: Vital Signs Temperature 96.8 F L 01/26/19 06:00 Pulse Rate 64 01/26/19 06:00 Respiratory Rate 18 01/26/19 06:00 Blood Pressure 100/61 01/26/19 06:00 O2 Sat by Pulse Oximetry (%) Pertinent Admission Physical Exam Findings: withdrawal signs and symptom Vital Signs Temperature 96.8 F L 01/26/19 06:00 Pulse Rate 64 01/26/19 06:00 Respiratory Rate 18 01/26/19 06:00 Blood Pressure 100/61 01/26/19 06:00 O2 Sat by Pulse Oximetry (%) Laboratory Last Values WBC 8.4 K/mm3 (4.0-10.0) 01/24/19 15:10 RBC 4.90 M/mm3 (4.00-5.60) 01/24/19 15:10 Hgb 15.7 GM/dL (11.7-16.9) 01/24/19 15:10 Hct 46.0 % (35.4-49) 01/24/19 15:10 MCV 93.8 fl (80-96) 01/24/19 15:10 MCH 32.1 pg (25.7-33.7) 01/24/19 15:10 MCHC 34.3 g/dl (32.0-35.9) 01/24/19 15:10 RDW 13.5 % (11.9-15.9) 01/24/19 15:10 Plt Count 290 K/MM3 (134-434) 01/24/19 15:10 MPV 8.3 fl (7.5-11.1) 01/24/19 15:10 Sodium 136 mmol/L (136-145) 01/24/19 15:10 Potassium 3.8 mmol/L (3.5-5.1) 01/24/19 15:10 Chloride 100 mmol/L (98-107) 01/24/19 15:10 Carbon Dioxide 26 mmol/L (21-32) 01/24/19 15:10 Anion Gap 11 MMOL/L (8-16) 01/24/19 15:10 BUN 14.9 mg/dL (7-18) 01/24/19 15:10 Creatinine 1.1 mg/dL (0.55-1.3) 01/24/19 15:10 Est GFR (CKD-EPI)AfAm 94.13 01/24/19 15:10 Est GFR (CKD-EPI)NonAf 81.21 01/24/19 15:10 Random Glucose 86 mg/dL (74-106) 01/24/19 15:10 Calcium 9.8 mg/dL (8.5-10.1) 01/24/19 15:10 Total Bilirubin 0.7 mg/dL (0.2-1) 01/24/19 15:10 AST 54 U/L (15-37) H 01/24/19 15:10 ALT 83 U/L (13-61) H 01/24/19 15:10 Alkaline Phosphatase 99 U/L (45-117) 01/24/19 15:10 Total Protein 8.2 g/dl (6.4-8.2) 01/24/19 15:10 Albumin 4.4 g/dl (3.4-5.0) 01/24/19 15:10 RPR Titer Nonreactive (NONREACTIVE) 01/24/19 15:10 - Medication Discharge Medications: Ambulatory Orders NK [No Known Home Medication] 09/13/17 - Diagnosis (1) Alcohol dependence with withdrawal Current Visit: Yes Status: Acute Qualifiers: Complication of substance-induced condition: uncomplicated Qualified Code(s ): F10.230 - Alcohol dependence with withdrawal, uncomplicated (2) Cannabis dependence Current Visit: Yes Status: Chronic (3) Cocaine dependence Current Visit: Yes Status: Chronic Qualifiers: Substance use status: uncomplicated Qualified Code(s): F14.20 - Cocaine dependence, uncomplicated (4) GERD (gastroesophageal reflux disease) Current Visit: Yes Status: Chronic Qualifiers: Esophagitis presence: without esophagitis Qualified Code(s): K21.9 - Gastro -esophageal reflux disease without esophagitis (5) Nicotine dependence Current Visit: Yes Status: Chronic Qualifiers: Nicotine product type: cigarettes Substance use status: uncomplicated Qualified Code(s): F17.210 - Nicotine dependence, cigarettes, uncomplicated - AMA Did Patient Leave Against Medical Advice: Yes
[2019-01-26] MEDS ORDERED: chlordiazePOXIDE HCL 10 MG CAPSULE PO SCH (23:00)
[2019-01-27] MEDS ORDERED: chlordiazePOXIDE HCL 10 MG CAPSULE PO SCH (23:00)
== END 2019-01-26 08:02 | disposition home or self-care (01) | DRG 774 ==
LOC: YASAS 10:06 → Y6N 15:30
PROVIDERS: ADMIT Surgery; ATTEND Surgery
PROC: HZ2ZZZZ Detoxification Services for Substance Abuse Treatment (ICD-10-PCS; principal; 2019-01-24)
DX: F10.230 Alcohol dependence with withdrawal, uncomplicated (principal); F14.20 Cocaine dependence, uncomplicated; F12.20 Cannabis dependence, uncomplicated; F17.210 Nicotine dependence, cigarettes, uncomplicated; F19.282 Other psychoactive substance dependence with psychoactive substance-induced sleep disorder; F32.9 Major depressive disorder, single episode, unspecified; K21.9 Gastro-esophageal reflux disease without esophagitis
CPT/HCPCS: 36415; 80053; 85027; 86593; 93005; 93010; Q0162